=== PATIENT | male | born 1995 | race Caucasian/White ===

== ENCOUNTER 2023-07-01 06:02 | Day surgery (SDC) | payer BC, SELFPAY ==
[2023-07-01] VITALS (8 sets, daily range): BP systolic 101–122; BP diastolic 66–81; BMI 20.2
[2023-07-01] MEDS: TYLENOL 1000 MG PO (06:27)
[2023-07-01] MEDS: NORMOSOL-R 1000 IV (06:47)
== END 2023-07-01 10:25 | disposition home or self-care (01) ==
LOC: SDS 06:02
PROVIDERS: ATTENDING PHYSICIAN Surgery
DX: L05.01 Pilonidal cyst with abscess (principal)
CPT/HCPCS: 11771; 88304